=== PATIENT | female | born 1985 | race Caucasian/White ===

== ENCOUNTER 2017-09-21 11:30 | Emergency (ER) | payer SELFPAY ==
[~2017-09-21] VITALS: Ht 177.8 cm; Wt 68.0 kg
[~2017-09-21 11:30] MED LIST: CEPHALEXIN500 MG PO; FLEXERIL OR; MULTI VIT PO; ZPAK PO
[2017-09-21 12:34] LABS: HEMATOCRIT 40.7 % (37.0-47.0); HEMOGLOBIN 13.9 g/dl (12.0-16.0); IMMATURE GRANULOCYTES 0.3 % (0.0-1.0); MEAN CELL VOLUME 86.6 fL CALC (80.0-100.0); MEAN CORPUSCULAR HGB 29.6 pG CALC (26.0-32.0); MEAN CORPUSCULAR HGB CONC 34.2 g/L CALC (32.0-36.0); NEUT# 3.32 thou/uL (2.00-7.15); RED BLOOD COUNT 4.7 mill/uL (4.20-5.60); RED CELL DISTRI WIDTH 12.8 % (11.5-15.5)
[2017-09-21 12:39] LABS: URINE BILIRUBIN - DIPSTICK NEGATIVE (NEGATIVE); URINE BLOOD DIPSTICK NEGATIVE (NEGATIVE); URINE COLOR YELLOW; URINE GLUCOSE - DIPSTICK NEGATIVE (NEGATIVE); URINE KETONE 15 mg/dL (NEGATIVE); URINE LEUK ESTERASE NEGATIVE (NEGATIVE); URINE PH 5.5 (4.5-8.0); URINE PROTEIN - DIPSTICK NEGATIVE (NEG-TRACE); URINE SPECIFIC GRAVITY >=1.030
[2017-09-21 12:41] LABS: URINE BACTERIA MANY hpf; URINE CLARITY HAZY; URINE EPITHELIAL CELLS FEW EPI/hpf (0-FEW); URINE NITRITE - DIPSTICK POSITIVE (Negative)
[2017-09-21 13:00] LABS: ALBUMIN 4.6 g/dL (3.2-5.0); ALKALINE PHOSPHATASE 56 u/l (38-126); AMYLASE 63 u/l (30-110); ANION GAP 15 (6-22 (CALC)); BILIRUBIN, TOTAL 0.8 mg/dL (0.0-1.4); BUN 10 mg/dL (7-17); BUN/CREATININE RATIO 16 (12-20 (CALC)); CALCIUM 9.4 mg/dL (8.4-10.2); CARBON DIOXIDE 25 mmol/l (22-30); CHLORIDE 108 mmol/l (95-108); CREATININE 0.7 mg/dL (0.5-1.0); GFR > 60 ML/MIN (>=60 (CALC)); GFR FOR AFR.AMER. > 60 ML/MIN (>=60 (CALC)); GLUCOSE 98 mg/dL (65-105); LIPASE 63 u/l (23-300); POTASSIUM 4.6 mmol/l (3.5-5.1); SGOT/AST 28 u/l (14-36); SGPT/ALT 19 u/l (9-52); SODIUM 144 mmol/l (137-146); TOTAL PROTEIN 7.7 g/dL (6.3-8.2)
[2017-09-21] MEDS ORDERED: ULTRAM50 M1 PO (14:57)
[2017-09-21] MEDS ORDERED: CIPROFLOXACN500 MG PO (14:57)
[2017-09-21 15:06] VITALS: BP 113/68
== END 2017-09-21 15:22 | disposition home or self-care (01) | DRG 690 ==
LOC: ED 11:30
PROVIDERS: Emergency Medicine
DX: N39.0 Urinary tract infection, site not specified (principal); B96.20 Unspecified Escherichia coli [E. coli] as the cause of diseases classified elsewhere; R11.0 Nausea; R10.32 Left lower quadrant pain

== ENCOUNTER 2020-06-22 00:47 | Observation (INO) | payer OTHER ==
[~2020-06-22] VITALS: Ht 177.8 cm; Wt 67.2 kg
[~2020-06-22 00:47] MED LIST changes: +CIPROFLOXACN500 MG PO; +ULTRAM50 M1 PO
--- NOTE | 2020-06-22 00:48 | NUR ---
BY WC TO ROOM
[2020-06-22 01:45] LABS: HEMATOCRIT 37.4 % (37.0-47.0); HEMOGLOBIN 12.5 g/dl (12.0-16.0); IMMATURE GRANULOCYTES 0.2 % (0.0-5.0); MEAN CELL VOLUME 88.8 fL CALC (80.0-100.0); MEAN CORPUSCULAR HGB 29.7 pG CALC (26.0-32.0); MEAN CORPUSCULAR HGB CONC 33.4 g/dL CAL (32.0-36.0); NEUT# 2.58 thou/uL (2.00-7.15); RED BLOOD COUNT 4.21 mill/uL (4.20-5.60); RED CELL DISTRI WIDTH 13.8 % (11.5-15.5)
[2020-06-22 02:03] LABS: ALBUMIN 4.4 g/dL (3.2-5.0); ALKALINE PHOSPHATASE 53 u/l (38-126); AMYLASE 44 u/l (30-110); ANION GAP 13 (6-22 (CALC)); BUN 10 mg/dL (7-17); BUN/CREATININE RATIO 20 (12-20 (CALC)); CARBON DIOXIDE 22 mmol/l (22-30); CHLORIDE 105 mmol/l (95-108); CREATININE 0.5 mg/dL (0.5-1.0); GFR > 60 ML/MIN (>=60 (CALC)); GFR FOR AFR.AMER. > 60 ML/MIN (>=60 (CALC)); LIPASE 55 u/l (23-300); POTASSIUM 3.7 mmol/l (3.5-5.1); SGOT/AST 19 u/l (14-36); SODIUM 137 mmol/l (137-146); TOTAL PROTEIN 6.9 g/dL (6.3-8.2)
[2020-06-22 02:07] LABS: BILIRUBIN, TOTAL 0.4 mg/dL (0.0-1.4)
--- NOTE | 2020-06-22 02:08 | NUR ---
PAIN IS SLIGHTLY DECREASED. APPEARS MORE COMFORTABLE.
--- NOTE | 2020-06-22 03:08 | NUR ---
PAIN PERSISTS BUT TO A LESSER DEGREE.
--- NOTE | 2020-06-22 04:00 | NUR ---
NO SIGNIFICANT CHANGE NOTED.
--- NOTE | 2020-06-22 05:00 | NUR ---
DISCUSSED FINDINGS WITH PT.
--- NOTE | 2020-06-22 06:00 | NUR ---
PAIN PERSISTS. VSS.
--- NOTE | 2020-06-22 07:08 | NUR ---
Admission Note Report Given to: DESI SENIOR Transported by: Wheelchair X Stretcher Transported with: X Nurse Transporter X Patent IV O2 Custom Ski Maker Location: ICU X [facility]2
[2020-06-22 07:25] VITALS: BP 103/62
--- NOTE | 2020-06-22 12:54 | NUR ---
PT WAS ADMITTED FROM ER VIA SSTRETCHER AND TRANSFERRED TO BED WITH ONE PERSON ASSSIST. PT IS ALERT AND ORIENTED X 4 AND ABLE TO VERBALIZE NEEDS. RESPIRATIONS ARE EVEN AND NON LABORED. NO COUGH AND CONGESTION NOTED AND PT DENIES COLD SYMPTOMS.LUNGS SOUNDS ARE CLEAR AND EQUAL. hEART RYTHM REGULAR. ABDOMEN IS SOFT AND TENDER IN ALL QUADRANTS AND MORE PAIN NEAR THE UMBILICAL AREA. PT IS CONTINENT OF B/B AND NO ASSIST NEEDED TO TOILET. PT HAS IV IN LAC AND COMPLAINS OF DISCOMFORT AND REQUESTED SITE BE CHANGED. 20G PLACED IN RFA AND TOLERATED WELL. PLAN OF CARE DISCUSSED WITH PT AND SHE STATED SHE UNDERSTOOD. DISCUSSED PAIN MEDICATIONS AND PT DECLINED STATING SHE DOES NOT LIKE TO TAKE PAIN MEDS AT ALL AND WILL SUFFER THROUGH PAIN. WILL CONTINUE TO EDUCATE AND OFFER PAIN MANAGEMENT TO PT. CALL LIGTH WITHIN REACH AND BED IN LOW POSITION. WILL CONTINUE TO OBSERVE.
[2020-06-22 17:02] VITALS: BP 100/60
--- NOTE | 2020-06-22 18:33 | NUR ---
PT COMPLAINING OF EXCRUCIATING ABDOMINAL CRAMPS AND NAUSEA. DECLINING TO TAKE MEDICATION FPOR NAUSEA BUT AGREED TO TORADOL FOR PAIN. WAS MEDICATED WITH TORADOL 15MG AND WILL CONTINUE TO OBSERVE. PT VOMITED GREN/YELLOW COLOR LIQUID IN LARGE AMOUNTS AND STATES IT TASTED LIKE THE CONTRAST DYE SHE DRANK. SITTING UP ON THE SIDE OF HE BED AND SHE STATES SHE FEELS BETTER AFTER SHE VOMIT.
[2020-06-22 19:04] VITALS: BP 98/67
--- NOTE | 2020-06-22 19:25 | NUR ---
1925-Pt lying in bed with knees bent to chest, pt states this provides some comfort from the pain. Assessment complete. Pt verbalized her recent surgery in April and that her stools have not been normal since then. I provided warm compress and assisted her to a different position. She stated that she was a little more comfortable. Bed low and locked. Call light and phone within reach. Pt stable. Will continue to monitor frequently.
[2020-06-22 22:01] LABS: URINE BLOOD DIPSTICK NEGATIVE (NEGATIVE); URINE GLUCOSE - DIPSTICK NEGATIVE (NEGATIVE); URINE KETONE >=80 mg/dL (NEGATIVE); URINE LEUK ESTERASE NEGATIVE (NEGATIVE); URINE NITRITE - DIPSTICK NEGATIVE (Negative); URINE PH 5.5 (4.5-8.0); URINE PROTEIN - DIPSTICK 30 mg/dL (NEG-TRACE); URINE SPECIFIC GRAVITY >=1.030
[2020-06-22 22:03] LABS: URINE BILIRUBIN - DIPSTICK NEGATIVE (NEGATIVE); URINE COLOR AMBER
[2020-06-22 22:10] LABS: URINE AMORPH SEDIMENT MANY hpf (NONE-FEW); URINE RBC 0-2 RBC/hpf (0-5); URINE SQUAMOUS EPITHELIAL CELL FEW EPI/hpf (0-FEW); URINE WBC 0-2 WBC/hpf (0-5)
[2020-06-23 00:13] VITALS: BP 95/57
--- NOTE | 2020-06-23 01:15 | NUR ---
0115-Pt lying in bed asleep. No s/s of distress. Bed low and wheels locked. Call light and phone within reach. Pt stable, will continue to monitor.
[2020-06-23 03:45] VITALS: BP 99/64
[2020-06-23 04:49] LABS: HEMATOCRIT 34.4 % (37.0-47.0); HEMOGLOBIN 11.2 g/dl (12.0-16.0); IMMATURE GRANULOCYTES 0.3 % (0.0-5.0); MEAN CELL VOLUME 90.3 fL CALC (80.0-100.0); MEAN CORPUSCULAR HGB 29.4 pG CALC (26.0-32.0); MEAN CORPUSCULAR HGB CONC 32.6 g/dL CAL (32.0-36.0); NEUT# 8.25 thou/uL (2.00-7.15); RED BLOOD COUNT 3.81 mill/uL (4.20-5.60)
[2020-06-23 05:12] LABS: ALBUMIN 3.6 g/dL (3.2-5.0); ALKALINE PHOSPHATASE 60 u/l (38-126); ANION GAP 9 (6-22 (CALC)); BUN 16 mg/dL (7-17); BUN/CREATININE RATIO 35 (12-20 (CALC)); CARBON DIOXIDE 23 mmol/l (22-30); CHLORIDE 111 mmol/l (95-108); CREATININE 0.5 mg/dL (0.5-1.0); GFR > 60 ML/MIN (>=60 (CALC)); GFR FOR AFR.AMER. > 60 ML/MIN (>=60 (CALC)); POTASSIUM 3.6 mmol/l (3.5-5.1); SGOT/AST 16 u/l (14-36); SODIUM 138 mmol/l (137-146); TOTAL PROTEIN 5.8 g/dL (6.3-8.2)
[2020-06-23 05:15] LABS: BILIRUBIN, TOTAL 0.9 mg/dL (0.0-1.4)
--- NOTE | 2020-06-23 07:21 | NUR ---
PT IN BED WITH EYES CLOLSED. NO S/S OF DISTRESS. ABLE TO MAKE N EEDS KNOWN. NO RESPIKRATORY DISTRESS NOTED. CALL LIGHT WITHIN REACH.
--- NOTE | 2020-06-23 08:30 | NUR ---
PT IS ALERT AND ORIENTED AND ABLE TO MAKE NEEDS KNOWN. SKIN WARM TO TOUCH. PT STATES THAT SHE FEELS SO MUCH BETTER TODAY AND WANTS TO EAT. STATED SHE HAD A LARGE BOWEL MOVEMENT THIS AM. COMPLAINED OF MINIMAL PAIN IN ABDOMEN AT 2 ON SCALE OF 1-10 WITH 10 GREATEST BELOW UMBILUS. ALSO STATES SHE FEREL SHE CAN GO HOME TODAY. WILL NOTIFY MD. PT IV SITE INTACT AND S/S OF INFECTION/INFILTRATION. NORMAL SALINE RUNNING AT 125ML/HR AND TOLERATING WELL. CALL LIGHT WITHIN REACHA DN WILL CONTINUE TO OBSERVE.
[2020-06-23 08:41] VITALS: BP 102/58
[2020-06-23 11:42] VITALS: BP 114/80
--- NOTE | 2020-06-23 12:08 | NUR ---
PT WAS DISCHARGED HOME THIS AFTERNOON. PT IS ALERT AND ORIENTED X 4 AND ABLE TO VERBALIZE NEEDS. DISCHARGE INSTRUCTION REVIEWED WITH PATIENT AND SHE STATED THATG SHE UNDERSTOOD DISCHARGE INSTRUCTION. MADE TO FOLLOW UP WITH PCP WITHIN 1 WEEK. PT WALKED OUT OF FACILITY WITH AT SIDE. GAIT AND BALANCE STEADY. ALL PERTINENT PAPERS AND BELONGINGS TAKEN WITH PT.
[2020-06-24] MEDS ORDERED: TRAMADOL HYDROC50 MG PO (13:56)
[2020-06-24] MEDS ORDERED: PHENERGAN25 MG/TAB PO ×2 (13:56)
== END 2020-06-23 11:47 | disposition home or self-care (01) | DRG 390 ==
LOC: ED 00:47 → ED-I 05:30 → ED 06:10 → MS2 06:11
PROVIDERS: Emergency Medicine; ADMIT Internal Medicine; ATTEND Internal Medicine
DX: K56.609 Unspecified intestinal obstruction, unspecified as to partial versus complete obstruction (principal); F17.200 Nicotine dependence, unspecified, uncomplicated; Z90.710 Acquired absence of both cervix and uterus; Z11.59 Encounter for screening for other viral diseases
CPT/HCPCS: G0378; Q9967

== ENCOUNTER 2020-06-24 07:59 | Emergency (ER) | payer OTHER ==
[~2020-06-24] VITALS: Ht 177.8 cm; Wt 70.4 kg
[2020-06-24 08:39] LABS: URINE BLOOD DIPSTICK SMALL (NEGATIVE); URINE COLOR YELLOW; URINE GLUCOSE - DIPSTICK NEGATIVE (NEGATIVE); URINE KETONE >=80 mg/dL (NEGATIVE); URINE LEUK ESTERASE NEGATIVE (NEGATIVE); URINE NITRITE - DIPSTICK NEGATIVE (Negative); URINE PROTEIN - DIPSTICK TRACE mg/dL (NEG-TRACE); URINE SPECIFIC GRAVITY >=1.030
[2020-06-24 08:41] LABS: IMMATURE GRANULOCYTES 0.2 % (0.0-5.0); MEAN CORPUSCULAR HGB 29.2 pG CALC (26.0-32.0); MEAN CORPUSCULAR HGB CONC 32.4 g/dL CAL (32.0-36.0); NEUT# 6.48 thou/uL (2.00-7.15); RED BLOOD COUNT 4.11 mill/uL (4.20-5.60); RED CELL DISTRI WIDTH 13.6 % (11.5-15.5)
[2020-06-24 09:11] LABS: URINE BILIRUBIN - DIPSTICK SMALL (NEGATIVE)
[2020-06-24 09:12] LABS: URINE EPITHELIAL CELLS FEW EPI/hpf (0-FEW); URINE RBC 0-2 RBC/hpf (0-5)
[2020-06-24 09:14] LABS: ALBUMIN 4.1 g/dL (3.2-5.0); ALKALINE PHOSPHATASE 74 u/l (38-126); AMYLASE 47 u/l (30-110); ANION GAP 12 (6-22 (CALC)); BILIRUBIN, TOTAL 1.1 mg/dL (0.0-1.4); BUN 10 mg/dL (7-17); BUN/CREATININE RATIO 21 (12-20 (CALC)); CARBON DIOXIDE 21 mmol/l (22-30); CHLORIDE 105 mmol/l (95-108); CREATININE 0.5 mg/dL (0.5-1.0); GFR > 60 ML/MIN (>=60 (CALC)); GFR FOR AFR.AMER. > 60 ML/MIN (>=60 (CALC)); LIPASE 12 u/l (23-300); POTASSIUM 3.5 mmol/l (3.5-5.1); SGOT/AST 19 u/l (14-36); SODIUM 135 mmol/l (137-146)
[2020-06-24 09:17] LABS: TOTAL PROTEIN 7.2 g/dL (6.3-8.2)
[2020-06-24] MEDS ORDERED: PHENERGAN25 MG/TAB PO ×2 (13:56)
[2020-06-24] MEDS ORDERED: TRAMADOL HYDROC50 MG PO (13:56)
[2020-06-24 15:20] VITALS: BP 119/68
== END 2020-06-24 15:21 | disposition home or self-care (01) | DRG 392 ==
LOC: ED 07:59
PROVIDERS: Family Medicine
DX: R10.84 Generalized abdominal pain (principal); F17.210 Nicotine dependence, cigarettes, uncomplicated; Z90.710 Acquired absence of both cervix and uterus
CPT/HCPCS: Q9967

== ENCOUNTER 2020-06-26 14:31 | Observation (INO) | payer OTHER ==
[~2020-06-26] VITALS: Ht 177.8 cm; Wt 69.0 kg
[~2020-06-26 14:31] MED LIST changes: +PHENERGAN25 MG/TAB PO; +TRAMADOL HYDROC50 MG PO
[2020-06-26 15:00] VITALS: BP 110/67
[2020-06-26 15:40] LABS: HEMATOCRIT 36.4 % (37.0-47.0); HEMOGLOBIN 12.1 g/dl (12.0-16.0); IMMATURE GRANULOCYTES 0.3 % (0.0-5.0); MEAN CELL VOLUME 88.1 fL CALC (80.0-100.0); MEAN CORPUSCULAR HGB 29.3 pG CALC (26.0-32.0); MEAN CORPUSCULAR HGB CONC 33.2 g/dL CAL (32.0-36.0); NEUT# 1.41 thou/uL (2.00-7.15); RED BLOOD COUNT 4.13 mill/uL (4.20-5.60); RED CELL DISTRI WIDTH 13.2 % (11.5-15.5)
[2020-06-26 19:08] LABS: ANION GAP 12 (6-22 (CALC)); BUN 10 mg/dL (7-17); BUN/CREATININE RATIO 27 (12-20 (CALC)); CARBON DIOXIDE 23 mmol/l (22-30); CHLORIDE 104 mmol/l (95-108); CREATININE 0.4 mg/dL (0.5-1.0); GFR > 60 ML/MIN (>=60 (CALC)); GFR FOR AFR.AMER. > 60 ML/MIN (>=60 (CALC)); POTASSIUM 3.9 mmol/l (3.5-5.1); SODIUM 135 mmol/l (137-146)
[2020-06-26 19:21] VITALS: BP 96/66
[2020-06-27 05:16] VITALS: BP 105/72
[2020-06-27 07:41] VITALS: BP 97/66
[2020-06-27 15:47] VITALS: BP 123/73
[2020-06-27 19:34] VITALS: BP 112/69
[2020-06-28] VITALS (9 sets, daily range): BP systolic 103–126; BP diastolic 63–78
[2020-06-29 03:50] VITALS: BP 118/71
[2020-06-29 08:02] VITALS: BP 106/71
[2020-06-29] MEDS ORDERED: KETOROLAC10 MG PO ×2 (12:32)
== END 2020-06-29 13:24 | disposition home or self-care (01) | DRG 418 ==
LOC: MS2 14:31
PROVIDERS: ADMIT Surgery; ATTEND Surgery
PROC: 0DTJ4ZZ Resection of Appendix, Percutaneous Endoscopic Approach (ICD-10-PCS; principal; 2020-06-28)
PROC: 0FT44ZZ Resection of Gallbladder, Percutaneous Endoscopic Approach (ICD-10-PCS; 2020-06-28)
PROC: 0UQG4ZZ Repair Vagina, Percutaneous Endoscopic Approach (ICD-10-PCS; 2020-06-28)
DX: K81.0 Acute cholecystitis (principal); K45.0 Other specified abdominal hernia with obstruction, without gangrene; K38.8 Other specified diseases of appendix; Z90.710 Acquired absence of both cervix and uterus
CPT/HCPCS: A9537; G0378; G0379; J1100; J2805

== ENCOUNTER 2020-08-06 16:06 | Emergency (ER) | payer OTHER ==
[~2020-08-06] VITALS: Ht 177.8 cm; Wt 70.5 kg
[~2020-08-06 16:06] MED LIST changes: +KETOROLAC10 MG PO
[2020-08-06 16:54] LABS: GFR > 60 ML/MIN (>=60 (CALC)); GFR FOR AFR.AMER. > 60 ML/MIN (>=60 (CALC))
[2020-08-06 16:55] LABS: HEMATOCRIT 38.9 % (37.0-47.0); HEMOGLOBIN 12.7 g/dl (12.0-16.0); IMMATURE GRANULOCYTES 0.3 % (0.0-5.0); MEAN CELL VOLUME 86.4 fL CALC (80.0-100.0); MEAN CORPUSCULAR HGB 28.2 pG CALC (26.0-32.0); MEAN CORPUSCULAR HGB CONC 32.6 g/dL CAL (32.0-36.0); NEUT# 3.24 thou/uL (2.00-7.15); RED BLOOD COUNT 4.5 mill/uL (4.20-5.60); RED CELL DISTRI WIDTH 14.4 % (11.5-15.5)
[2020-08-06 17:11] LABS: ALBUMIN 4.3 g/dL (3.2-5.0); ALKALINE PHOSPHATASE 71 u/l (38-126); ANION GAP 12 (6-22 (CALC)); BUN 7 mg/dL (7-17); BUN/CREATININE RATIO 14 (12-20 (CALC)); CARBON DIOXIDE 22 mmol/l (22-30); CHLORIDE 107 mmol/l (95-108); CREATININE 0.5 mg/dL (0.5-1.0); GFR > 60 ML/MIN (>=60 (CALC)); GFR FOR AFR.AMER. > 60 ML/MIN (>=60 (CALC)); LIPASE 24 u/l (23-300); POTASSIUM 3.4 mmol/l (3.5-5.1); SGOT/AST 31 u/l (14-36); SODIUM 138 mmol/l (137-146); TOTAL PROTEIN 7.1 g/dL (6.3-8.2)
[2020-08-06 17:20] LABS: BILIRUBIN, TOTAL 0.6 mg/dL (0.0-1.4)
[2020-08-06 18:31] LABS: URINE BILIRUBIN - DIPSTICK NEGATIVE (NEGATIVE); URINE BLOOD DIPSTICK LARGE (NEGATIVE); URINE COLOR YELLOW; URINE GLUCOSE - DIPSTICK NEGATIVE (NEGATIVE); URINE KETONE TRACE mg/dL (NEGATIVE); URINE LEUK ESTERASE TRACE (NEGATIVE); URINE NITRITE - DIPSTICK NEGATIVE (Negative); URINE PH 5.5 (4.5-8.0); URINE PROTEIN - DIPSTICK 100 mg/dL (NEG-TRACE); URINE SPECIFIC GRAVITY >=1.030; URINE UROBILINOGEN - DIPSTICK 0.2 E.U./dL (0.2)
[2020-08-06 18:44] LABS: URINE RBC 50-100 RBC/hpf (0-5); URINE WBC >100 WBC/hpf (0-5)
[2020-08-06] MEDS ORDERED: NITROFURANTN100 M2 PO (19:11)
[2020-08-06 19:33] VITALS: BP 103/61
== END 2020-08-06 19:33 | disposition home or self-care (01) | DRG 690 ==
LOC: ED 16:06
PROVIDERS: Family Medicine
DX: N39.0 Urinary tract infection, site not specified (principal); F17.200 Nicotine dependence, unspecified, uncomplicated; Z90.49 Acquired absence of other specified parts of digestive tract; Z87.440 Personal history of urinary (tract) infections
CPT/HCPCS: Q9967

== ENCOUNTER 2021-07-14 12:08 | Emergency (ER) | payer SELFPAY ==
[~2021-07-14] VITALS: Ht 177.8 cm; Wt 70.5 kg
[~2021-07-14 12:08] MED LIST changes: +NITROFURANTN100 M2 PO
[2021-07-14 17:04] LABS: HEMATOCRIT 44.8 % (37.0-47.0); MEAN CORPUSCULAR HGB 29.9 pG CALC (26.0-32.0); MEAN CORPUSCULAR HGB CONC 33.3 g/dL CAL (32.0-36.0); NEUT# 3.9 thou/uL (2.00-7.15); RED BLOOD COUNT 4.98 mill/uL (4.20-5.60); RED CELL DISTRI WIDTH 12.8 % (11.5-15.5)
[2021-07-14 17:04] LABS: URINE BILIRUBIN - DIPSTICK NEGATIVE (NEGATIVE); URINE BLOOD DIPSTICK NEGATIVE (NEGATIVE); URINE COLOR YELLOW; URINE GLUCOSE - DIPSTICK NEGATIVE (NEGATIVE); URINE KETONE NEGATIVE (NEGATIVE); URINE LEUK ESTERASE NEGATIVE (NEGATIVE); URINE PH 7.5 (4.5-8.0); URINE PROTEIN - DIPSTICK NEGATIVE (NEG-TRACE); URINE UROBILINOGEN - DIPSTICK 0.2 E.U./dL (0.2)
[2021-07-14 17:07] LABS: URINE NITRITE - DIPSTICK NEGATIVE (Negative)
[2021-07-14 17:07] LABS: HEMOGLOBIN 14.9 g/dl (12.0-16.0)
[2021-07-14 17:12] LABS: ALBUMIN 4.5 g/dL (3.2-5.0); ALKALINE PHOSPHATASE 57 u/l (38-126); ANION GAP 13 (6-22 (CALC)); BILIRUBIN, TOTAL 0.5 mg/dL (0.0-1.4); BUN 9 mg/dL (7-17); BUN/CREATININE RATIO 15 (12-20 (CALC)); CHLORIDE 103 mmol/l (95-108); CREATININE 0.6 mg/dL (0.5-1.0); GFR > 60 ML/MIN (>=60 (CALC)); GFR FOR AFR.AMER. > 60 ML/MIN (>=60 (CALC)); LIPASE 64 u/l (23-300); SGOT/AST 21 u/l (14-36); SODIUM 139 mmol/l (137-146); TOTAL PROTEIN 8.3 g/dL (6.3-8.2)
[2021-07-14 17:20] LABS: CARBON DIOXIDE 27 mmol/l (22-30)
[2021-07-14 17:24] LABS: MYOGLOBIN 24 ng/mL (0 - 62)
[2021-07-14 18:46] VITALS: BP 121/68
== END 2021-07-14 18:45 | disposition home or self-care (01) | DRG 313 ==
LOC: ED 12:08
PROVIDERS: Emergency Medicine
DX: R07.9 Chest pain, unspecified (principal); R51.9 Headache, unspecified; F17.210 Nicotine dependence, cigarettes, uncomplicated; Z20.822 Contact with and (suspected) exposure to COVID-19

== ENCOUNTER 2022-06-01 10:16 | Emergency (ER) | payer SELFPAY ==
[~2022-06-01] VITALS: Ht 177.8 cm; Wt 68.2 kg
[2022-06-01] VITALS (7 sets, daily range): BP systolic 100–137; BP diastolic 66–91
[2022-06-01 10:58] LABS: HEMATOCRIT 39.6 % (37.0-47.0); HEMOGLOBIN 13.5 g/dl (12.0-16.0); IMMATURE GRANULOCYTES 0.1 % (0.0-5.0); MEAN CELL VOLUME 87.8 fL CALC (80.0-100.0); MEAN CORPUSCULAR HGB 29.9 pG CALC (26.0-32.0); MEAN CORPUSCULAR HGB CONC 34.1 g/dL CAL (32.0-36.0); NEUT# 4.83 thou/uL (2.00-7.15); RED BLOOD COUNT 4.51 mill/uL (4.20-5.60); RED CELL DISTRI WIDTH 13.1 % (11.5-15.5)
[2022-06-01 11:00] LABS: URINE BILIRUBIN - DIPSTICK NEGATIVE (NEGATIVE); URINE BLOOD DIPSTICK NEGATIVE (NEGATIVE); URINE COLOR YELLOW; URINE GLUCOSE - DIPSTICK NEGATIVE (NEGATIVE); URINE KETONE TRACE mg/dL (NEGATIVE); URINE LEUK ESTERASE NEGATIVE (NEGATIVE); URINE PROTEIN - DIPSTICK NEGATIVE (NEG-TRACE); URINE SPECIFIC GRAVITY >=1.030
[2022-06-01 11:03] LABS: URINE NITRITE - DIPSTICK NEGATIVE (Negative)
[2022-06-01 11:17] LABS: ALBUMIN 4.5 g/dL (3.2-5.0); ALKALINE PHOSPHATASE 49 u/l (38-126); ANION GAP 11 (6-22 (CALC)); BILIRUBIN, TOTAL 0.5 mg/dL (0.0-1.4); BUN 9 mg/dL (7-17); BUN/CREATININE RATIO 15 (12-20 (CALC)); CARBON DIOXIDE 22 mmol/l (22-30); CHLORIDE 108 mmol/l (95-108); CREATININE 0.6 mg/dL (0.5-1.0); GFR FOR AFR.AMER. > 60 ML/MIN (>=60 (CALC)); GFR OTHER RACES > 60 ML/MIN (>=60 (CALC)); LIPASE 51 u/l (23-300); SGOT/AST 19 u/l (14-36); SODIUM 138 mmol/l (137-146); TOTAL PROTEIN 7.4 g/dL (6.3-8.2)
== END 2022-06-01 12:30 | disposition home or self-care (01) | DRG 392 ==
LOC: ED 10:16
PROVIDERS: Family Medicine
DX: R10.30 Lower abdominal pain, unspecified (principal); R11.2 Nausea with vomiting, unspecified; F17.210 Nicotine dependence, cigarettes, uncomplicated
CPT/HCPCS: Q9967